=== PATIENT | female | born 1985 | race Caucasian/White ===

== ENCOUNTER 2016-12-09 08:36 | Emergency (ER) | payer SELFPAY ==
[2016-12-09 09:30] VITALS: TEMP 98.2; BMI 39.6
[2016-12-09 11:17] VITALS: BP 153/104; PULSE 76
[2016-12-09 11:28] LABS: LEUKOCYTES/URINE 2+ (NEGATIVE); NITRITE/URINE NEG (NEGATIVE); URINE OCCULT BLOOD NEG (NEG/TRACE); WBC/URINE 40-50 (0-5)
--- NOTE | 2016-12-09 11:45 | EDPRACDOC ---
- General Information Chief Complaint: Female Urogenital Problems Stated Complaint: URINARY PROBLEM Time Seen by Provider: 12/09/16 11:10 Information Source: Family Home Medications: Home Medications Azithromycin [Zithromax] 250 mg PO DAILY #6 tablet 09/28/16 Benzonatate [Tessalon Perle] 100 mg PO TID PRN #21 capsule 09/28/16 Fluconazole [Diflucan] 150 mg PO DIR #2 tablet 09/28/16 Prednisone [Deltasone, Orasone] 20 mg PO BID #12 tab 09/28/16 Cyclobenzaprine HCl [Flexeril] 10 mg PO TID PRN #20 tablet 10/12/16 Ketoprofen 50 mg PO BID PRN #20 capsule 10/12/16 Fluconazole [Diflucan] 150 mg PO DAILY #1 tab 12/09/16 Ibuprofen 600 mg PO TID #20 tablet 12/09/16 Nitrofurantoin [Macrobid] 100 mg PO BID #20 cap 12/09/16 Ondansetron HCl [Zofran] 4 mg PO Q6H PRN #20 tab 12/09/16 Phenazopyridine [Pyridium] 100 mg PO TID #30 tab 12/09/16 Allergies/Adverse Reactions: Allergies Allergy/AdvReac Type Severity Reaction Status Date / Time codeine Allergy Itching Verified 12/09/16 09:27 promethazine HCl Allergy Itching Verified 12/09/16 09:27 [From Phenergan] - History of Present Illness HPI: PT PRESENTS TODAY WITH DYSURIA SINCE LAST NIGHT. ASSOCIATED NAUSEA, AHMADI. DENIES CP, SHOB, VOMITING/DIARRHEA, VAGINAL BLEEDING/DISCHARGE. NO DISTRESS. Onset: yesterday Urinary Pain Location: Reports: Suprapubic Symptom Onset: Reports: Gradual Pain Severity: Moderate Pain Quality: Reports: Burning History of: Reports: None Oral Intake: Normal Urinary Output: Normal Associated Signs and Symptoms: Reports: Abdominal Pain, Nausea ED Past Medical History - History Reviewed Yes Nurses notes reviewed and agree except as marked - Patient Medical History Psychological History: Denies: Depression Systemic History: Denies: Cancer Surgical History: Reports: Cholecystectomy. Denies: Hysterectomy - Social Medical History Smoking Status: Heavy tobacco smoker (5 or more cigarettes/day or daily pipe/ cigar) EDM Review of Systems - Review of Systems ROS Negative Except as Marked: Yes All systems reviewed and were negative except as marked Constitutional: No Symptoms Reported Respiratory: No Symptoms Reported Cardiovascular: No Symptoms Reported Gastrointestinal: Nausea, Pain Genitourinary: Dysuria Neurological: Headache Musculoskeletal: No Symptoms Reported Integumentary: No Symptoms Reported - Physical Exam Constitutional: Alert (Awake), No apparent distress Oriented to: Time, Person, Place Last recorded Vital Signs: Last Vital Signs Temp 98.2 F 12/09/16 09:27 Pulse 76 12/09/16 11:16 Resp 18 12/09/16 11:16 BP 153/104 H 12/09/16 11:16 Pulse Ox 98 12/09/16 11:16 Oxygen Pulse Oxygen Saturation 98 O2 Device Room Air Oxygen Flow Rate Fraction of Inspired Oxygen ( FIO2) - HEENT Head: Normal Eye Exam: Normal Neck: Normal, Denies Pain, Midline - Respiratory/Cardiovascular Respiratory: Normal - CTA Cardiovascular: Normal - GI Palpation: Normal Tenderness: Moderate, Suprapubic Carpio's Sign: Negative - Bladder: Tender - Musculoskeletal Back: Normal Extremities: Normal - Integumentary Skin: Normal Lymphatics: Normal - Neurologic Cerebellar: Normal Mood Description: Normal Thought: Coherent Perception: Normal - Results Urine Color Yellow 12/09/16 11:10 Urine Clarity Sl cldy 12/09/16 11:10 Urine pH 6.0 (5.0-8.0) 12/09/16 11:10 Ur Specific [place] 1.010 (1.003-1.035) 12/09/16 11:10 Urine Protein Neg (NEG/TRACE) 12/09/16 11:10 Urine Glucose (UA) Neg (NEGATIVE) 12/09/16 11:10 Urine Ketones Neg (NEGATIVE) 12/09/16 11:10 Urine Occult Blood Neg (NEG/TRACE) 12/09/16 11:10 Urine Nitrite Neg (NEGATIVE) 12/09/16 11:10 Urine Bilirubin Neg (NEGATIVE) 12/09/16 11:10 Urine Urobilinogen <2.0 MG/DL (0-1) 12/09/16 11:10 Ur Leukocyte Esterase 2+ (NEGATIVE) H 12/09/16 11:10 Urine RBC 2-5 (0-5) 12/09/16 11:10 Urine WBC 40-50 (0-5) H 12/09/16 11:10 Ur Epithelial Cells Occ 12/09/16 11:10 Urine Bacteria 1+ (NEG/FEW) H 12/09/16 11:10 Urine Mucus Occ (NEG/OCC) 12/09/16 11:10 Lab Results 12/09/16 11:10 Urine Color Yellow Urine Clarity Sl cldy Urine pH 6.0 Ur Specific [place] 1.010 Urine Protein Neg Urine Glucose (UA) Neg Urine Ketones Neg Urine Occult Blood Neg Urine Nitrite Neg Urine Bilirubin Neg Urine Urobilinogen <2.0 Ur Leukocyte Esterase 2+ H Urine RBC 2-5 Urine WBC 40-50 H Ur Epithelial Cells Occ Urine Bacteria 1+ H Urine Mucus Occ Decision Time to Discharge: 11:44 - Departure Disposition: Home Condition: Good Final Diagnosis: Urinary tract infection Qualifiers: Urinary tract infection type: site unspecified Hematuria presence: without hematuria Qualified Code(s): N39.0 - Urinary tract infection, site not specified Instructions: Urinary Tract Infection in Women (ED), Dysuria Education/Counseling Given To: Patient Education/Counseling Given Regarding: Diagnosis, Treatment, Follow Up Referrals: None,No Provider [Primary Care Provider] - One Week Prescriptions: New Ibuprofen 600 mg PO TID #20 tablet Nitrofurantoin [Macrobid] 100 mg PO BID #20 cap Phenazopyridine [Pyridium] 100 mg PO TID #30 tab Fluconazole [Diflucan] 150 mg PO DAILY #1 tab Ondansetron HCl [Zofran] 4 mg PO Q6H PRN #20 tab PRN Reason: Nausea/Vomiting No Action Azithromycin [Zithromax] 250 mg PO DAILY #6 tablet Benzonatate [Tessalon Perle] 100 mg PO TID PRN #21 capsule PRN Reason: Cough Fluconazole [Diflucan] 150 mg PO DIR #2 tablet Prednisone [Deltasone, Orasone] 20 mg PO BID #12 tab Cyclobenzaprine HCl [Flexeril] 10 mg PO TID PRN #20 tablet PRN Reason: Muscle Spasms Ketoprofen 50 mg PO BID PRN #20 capsule PRN Reason: Pain Additional Instructions: DRINK PLENTY OF WATER TO KEEP BLADDER CLEAN. FOLLOW UP WITH PCP IN 2-3 DAYS IF NEEDED.
== END 2016-12-09 11:49 | disposition home or self-care (01) ==
LOC: EDMC 08:36
DX: N39.0 Urinary tract infection, site not specified (principal)
CPT/HCPCS: 81001; 87086; 99282